=== PATIENT | female | born 1985 | race Caucasian/White ===

== ENCOUNTER 2023-01-23 10:21 | Emergency (ER) | payer MEDICAID ==
[~2023-01-23] VITALS: Ht 160 cm; Wt 65.0 kg
[2023-01-23 10:23] VITALS: TEMP 98.6
[2023-01-23] MEDS ORDERED: PNV1TABL54 PO (10:25)
[2023-01-23 12:04] VITALS: BP 120/75; PULSE 76; RESP 18
== END 2023-01-23 12:14 | disposition home or self-care (01) ==
LOC: EMS 10:30
DX: O26.893 Other specified pregnancy related conditions, third trimester (principal); R60.0 Localized edema; Z3A.36 36 weeks gestation of pregnancy
CPT/HCPCS: 93971; 99284; Z7502